=== PATIENT | male | born 1975 | race Caucasian/White ===

== ENCOUNTER 2016-09-02 14:08 | Inpatient (IN) ==
[2016-09-02 15:24] LABS: MANUAL DIFF NEEDED? NO
[2016-09-02 15:28] LABS: BASO% 0.3 % (0.0-0.8); EOS# 0.08 X1000 (0.0-0.7); EOS% 1.1 % (0.0-10.0); HEMATOCRIT 42.9 % (42.0-52.0); HEMOGLOBIN 13.7 g/dL (14.0-18.0); LYMPH# 1.82 X1000 (1.2-3.4); LYMPH% 25.1 % (20.5-51.1); MCH 27.2 PG (27-31); MCHC 31.9 g/dL (33-37); MCV 85.1 FL (81-99); MONO# 0.54 X1000 (0.11-0.59); MONO% 7.4 % (1.7-9.3); NEUT% 66.1 % (42.2-75.2); PLT 225 X1000 (130-400); RBC 5.04 XMIL (4.7-6.1)
--- NOTE | 2016-09-02 16:03 | EKG Report ---
Test Performed on : 09/02/2016 2:24:49 PM Test Reason : syncopy Blood Pressure : / mmHG Vent. Rate : 066 BPM Atrial Rate : 066 BPM P-R Int : 178 ms QRS Dur : 076 ms QT Int : 400 ms P-R-T Axes : 035 022 004 degrees QTc Int : 419 ms Normal sinus rhythm. Cannot rule out Anterior infarct , age undetermined Abnormal ECG When compared with ECG of 06-MAY-2016 11:33, No significant change was found Unconfirmed Result
[2016-09-02 16:17] LABS: AGAP 13; ALBUMIN 4.1 g/dL (3.5-5.0); ALKALINE PHOSPHATASE 65 U/L (32-122); BUN 13 mg/dL (8-22); CALCIUM 9.8 mg/dL (8.8-10.2); CHLORIDE 99 mmol/L (98-107); CK PROFILE 2408 U/L (24-204); COSMO 278; GOT 59 U/L (10-34); GPT 38 U/L (10-44); POTASSIUM 4.2 mmol/L (3.5-5.1); SODIUM 139 mmol/L (136-145); TCO2 27 mmol/L (25-35); TOTAL BILIRUBIN 0.74 mg/dL (0.20-1.00)
[2016-09-02] MEDS ORDERED: NS 1,000 ML IV ONE (16:31)
[2016-09-02 16:50] LABS: CK INDEX 1.5 (0.0-2.5); CK-MB 36.97 ng/mL (0.0-5.0)
--- NOTE | 2016-09-02 17:08 | Diag Imaging Result Doc PS360 ---
CHEST-2 VIEWS - 09/02/2016 INDICATION: syncope TECHNIQUE: COMPARISON: 05/06/2016 FINDINGS: The lungs are normally expanded and clear. Heart size and mediastinal contours are normal. No pneumothorax or pleural effusion. IMPRESSION: Negative exam. Electronically signed by Khari Atwood 09/02/2016 5:06 PM
[2016-09-02 19:01] LABS: HEMOGLOBIN A1C 6.4 % (4.8-6.0)
[2016-09-02 19:29] LABS: URINE CULTURE NEEDED? NO; URINE MICRO REVIEW NEEDED? NO; URINE SOURCE CLEAN CATCH
[2016-09-02 19:33] LABS: BILIRUBIN URINE NEGATIVE (NEGATIVE); BLOOD URINE NEGATIVE (NEGATIVE); COLOR YELLOW; GLUCOSE URINE NEGATIVE (NEGATIVE); LEUKOCYTES URINE NEGATIVE (NEGATIVE); NITRITE URINE NEGATIVE (NEGATIVE); PROTEIN URINE NEGATIVE (NEGATIVE); TURBIDITY URINE CLEAR (CLEAR); UR EPITHELIAL CELLS <10 /HPF (<10); URINE BACTERIA NEGATIVE /HPF; URINE RBC <10 /HPF (<10); URINE WBC <10 /HPF (<10); UROBILINOGEN URINE NORMAL (NORMAL)
[2016-09-02 19:52] LABS: UR AMPHETAMINES QUAL NONE DETECTED (NONE DETECT); UR BARBITUATES QUAL NONE DETECTED (NONE DETECT); UR BENZODIAZEPIN QUAL NONE DETECTED (NONE DETECT); UR CANNABINOIDS QUAL NONE DETECTED (NONE DETECT); UR COCAINE QUAL NONE DETECTED (NONE DETECT); UR METHADONE QUAL NONE DETECTED (NONE DETECT); UR OPIATES QUAL NONE DETECTED (NONE DETECT); UR OXYCODONE QUAL NONE DETECTED (NONE DETECT); UR PCP QUAL NONE DETECTED (NONE DETECT)
[2016-09-02] MEDS ORDERED: ZOFRAN IV PRN (20:46)
[2016-09-02] MEDS ORDERED: NS 1,000 ML IV PRN (20:46)
[2016-09-02] MEDS ORDERED: TYLENOL PO PRN (20:46)
[2016-09-02] MEDS: HEPARIN SUBQ SCH (21:15)
--- NOTE | 2016-09-02 22:34 | HISTORY AND PHYSICAL ---
PRIMARY CARE PROVIDER: No one. CHIEF COMPLAINT: Passed out. HISTORY OF PRESENT ILLNESS: Mr. Salvatore Hidalgo is a 40-year-old male, who apparently during a 15 minute break at work had passed out. He states he works at [employer] in a very hot environment where the air conditioner is not working. He states he drinks several bottles of water and Gatorade while at work. He also presented once last week for overheating and dizziness during work. Reviewing his cardiac enzymes, troponins are negative, but the CKs have been chronically elevated since August 2014 likely secondary to chronically working in the heat. MB has also been chronically elevated anywhere from [address] up to 36 today. Troponins have been negative, less than 0.01. Today is 0.015. He denies chest pain, shortness of breath. He does state that at night when he sleeps he feels like he ayden, but does have a weight is a of 350 pounds with a BMI of 42.6. The and the patient also state that he has frequently fallen asleep, even while driving, which is possibly narcolepsy. He has had a recent cardiac workup with a cardiac stress test and echocardiogram on 05/2016 which neither one had significant findings. He again denies any pain, shortness of breath, fever, chills, nausea, vomiting or diarrhea. We will admit overnight. We will do orthostatic vital signs every 12 hours. We will continue with serial cardiac enzymes. We will do aggressive IV fluid hydration. We will also order a carotid ultrasound to complete the workup. PAST MEDICAL HISTORY: None. SURGICAL HISTORY: None. SOCIAL HISTORY: Denies alcohol, tobacco or illicit drug use. He works at [employer] in a very hot environment. The patient also states that there have been other employees that had to go home secondary to heat exhaustion. FAMILY HISTORY: Sickle cell is positive in his family and he had a mother who has had a stroke. REVIEW OF SYSTEMS: A 14 point review of systems were completed and all were negative except for those mentioned in above HPI. ALLERGIES: Ibuprofen. HOME MEDICATIONS: None. PHYSICAL EXAMINATION: VITAL SIGNS: Temperature 98.2 degrees, heart rate anywhere from 51-66, respiratory rate 16, blood pressure 122/85, O2 saturation 92% on room air. He is 6 feet 4 inches tall, 350 pounds, BMI 42.6. GENERAL: Mr. Hidalgo is a 40-year-old morbidly obese male, who is in no acute distress, able to answer all questions appropriately. HEENT: Atraumatic, normocephalic. Pupils equal, round, reactive to light. Extraocular movements intact. Mucous membranes dry. NECK: Unable to assess for JVD secondary to body habitus, but negative for carotid bruits. CARDIOVASCULAR: S1, S2. Regular rate and rhythm. No rubs, gallops, murmurs. PULMONARY: Clear to auscultation. Bilateral breath sounds. No accessory muscle use or work of breathing noted. GI: Soft, nontender, morbidly obese, positive bowel sounds x4. EXTREMITIES: +2 dorsalis and radial pulses. No edema noted. NEUROLOGIC: Alert and oriented x4. Moves all extremities equally. There is some right eye protrusion which is chronic in nature. Pupils are equal and reactive. SKIN: Warm, dry, intact. LABORATORY DATA: White blood cells 7000, hemoglobin 13, hematocrit 42, platelet count 225,000. Sodium 139, potassium 4.2, BUN 13, creatinine is 1.1. Glucose 97, bilirubin 0.74, AST 59, ALT 38, CK 2408, CK-MB is 36.97. Troponin is 0.015. Urinalysis is pending. IMAGING: Chest x-ray: No acute findings. EKG: Normal sinus rhythm, rate is 66. No ST changes. QTc is 419. ASSESSMENT/PLAN: 1. Syncope. He has had a cardiac work up. Echocardiogram in May of this year showed a normal ejection fraction of 65%. There was trace pulmonary regurgitation, mild mitral regurgitation, mild tricuspid regurgitation, and that is all that it reported and then he also had a cardiac stress test 06/04/2016 which revealed no chest pain. Negative exercise stress echocardiogram at low workload/ there were no dysrhythmias and his blood pressure remained normal. There were no signs of ischemia. We will do every 12 hour orthostatic vital signs and follow up with a carotid ultrasound. 2. Dehydration with possible low-grade rhabdomyolysis. He does have a chronically elevated CK and CK-MB. We will do aggressive intravenous fluid hydration overnight and recheck serial cardiac enzymes to further evaluate the creatinine kinase levels. 3. Morbid obesity. Body mass index is 42.6. This could cause his complaints of smothering at night when he is sleeping. Exercise was discussed. Diet regimen also. 4. Symptoms of narcolepsy per the family. We are aware. No medications for narcolepsy at this time. 5. Deep venous thrombosis prophylaxis. Heparin. 6. Gastrointestinal prophylaxis. Proton pump inhibitor. Dictated by MELE Ceballos for Kang Ballesteros MD cc: MELE Ceballos MD
[2016-09-03 06:45] LABS: MANUAL DIFF NEEDED? NO
[2016-09-03] MEDS ORDERED: TYLENOL PO PRN (06:46)
[2016-09-03 06:57] LABS: BASO% 0.2 % (0.0-0.8); EOS# 0.13 X1000 (0.0-0.7); EOS% 1.5 % (0.0-10.0); HEMATOCRIT 42.4 % (42.0-52.0); HEMOGLOBIN 13.6 g/dL (14.0-18.0); IMM GRAN# 0.02 X1000 (0.0-0.04); IMM GRAN% 0.2 % (0.0-0.5); LYMPH# 1.51 X1000 (1.2-3.4); LYMPH% 17.3 % (20.5-51.1); MCH 27.5 PG (27-31); MCHC 32.1 g/dL (33-37); MCV 85.7 FL (81-99); MPV 11.3 FL (7.4-10.4); NEUT% 72.8 % (42.2-75.2); PLT 210 X1000 (130-400); RBC 4.95 XMIL (4.7-6.1)
[2016-09-03 07:02] LABS: INR 0.93 (0.86-1.15); PROTIME 12.8 Seconds (12.1-15.5)
[2016-09-03 07:03] LABS: PTT PL 31.4 Seconds (22.6-43.9)
[2016-09-03 07:11] LABS: AGAP 10; ALBUMIN 3.7 g/dL (3.5-5.0); ALKALINE PHOSPHATASE 71 U/L (32-122); BUN 16 mg/dL (8-22); CALCIUM 8.7 mg/dL (8.8-10.2); CHLORIDE 102 mmol/L (98-107); COSMO 277; GOT 40 U/L (10-34); GPT 33 U/L (10-44); MAGNESIUM 1.9 mg/dL (1.5-2.7); POTASSIUM 4.1 mmol/L (3.5-5.1); SODIUM 138 mmol/L (136-145); TCO2 27 mmol/L (25-35); TOTAL PROTEIN 6.1 g/dL (6.3-8.3)
--- NOTE | 2016-09-03 08:13 | PROGRESS NOTE ---
DATE: 09/03/2016 SUBJECTIVE: The patient denies any current chest pain, palpitations. Denies any complaints. He states he has been up to the restroom without any difficulty. PHYSICAL: Temperature 98, pulse 61, respiratory rate 18, BP 136/95, saturation 100% on room air. General: The patient is awake, alert, oriented. He is currently in no respiratory distress. He is pleasant to talk with. Overweight male. Neck: Supple. CV: Regular rate. Chest clear and unlabored. Abdomen soft, obese. Extremities: He moves all extremities. Neurologic: No focal changes. Skin warm and dry. No rashes. LABORATORY DATA: CBC normal. CMP normal with the exception of a calcium of 8.7 and a CPK at 1114. ASSESSMENT: 1. Rhabdomyolysis. CPK was 2408 upon initial presentation and currently is 1114. 2. Volume depletion. The patient likely is staying dehydrated at home, as well as at work, as he notes that his urine is usually quite dark in color. 3. Syncope. I expect this his vasovagal syncope secondary to volume depletion. 4. Hypertension. The patient's blood pressure, although not terribly high, is staying in the 135/90 range on average. I discussed with the patient that this is high blood pressure and that it certainly will need to be treated in the future but, currently given his syncope, we will continue to watch. PLAN: We will continue to watch the patient. We will continue to give the patient IV fluids. We will recheck a CPK in the a.m. Keep him on telemetry today and allow him to ambulate the halls. We will watch his blood pressures. We will continue to follow. cc: Obie De Leon MD
[2016-09-03] MEDS ORDERED: PRILOSEC PO SCH (09:00)
[2016-09-03] MEDS: HEPARIN SUBQ SCH ×2 (09:28→21:25)
[2016-09-03] MEDS: PRILOSEC PO SCH (09:28)
--- NOTE | 2016-09-03 10:50 | EKG Report ---
Test Performed on : 09/03/2016 05:46:19 AM Test Reason : syncope Blood Pressure : / mmHG Vent. Rate : 058 BPM Atrial Rate : 058 BPM P-R Int : 178 ms QRS Dur : 084 ms QT Int : 420 ms P-R-T Axes : 037 024 020 degrees QTc Int : 412 ms Sinus bradycardia. with sinus arrhythmia. Cannot rule out Anterior infarct (cited on or before 02-SEP-2016) Abnormal ECG When compared with ECG of 02-SEP-2016 14:24, (Unconfirmed) No significant change was found Unconfirmed Result
--- NOTE | 2016-09-03 15:24 | Extremity Venous Study ---
EXAM: Carotid Ultrasound - 09/03/2016 HISTORY: syncope TECHNIQUE: Carotid flow studies COMPARISON: None. FINDINGS: There is no substantial atherosclerotic plaque. The right carotid system. Maximum systolic velocity right internal carotid artery is 63 cm/s, maximum diastolic velocity is 19 cm/s. The right internal to common carotid artery systolic velocity ratio is 0.69. The flow velocities and ratio are consistent with 0-39% stenosis of the right internal carotid artery. The right vertebral artery demonstrates antegrade flow. There is no substantial atherosclerotic plaquing identified in the left carotid system. Maximum systolic velocity in the left internal carotid artery is 79 cm/s, maximum diastolic velocity is 34 cm/s. The left internal carotid to common carotid artery systolic velocity ratio is 0.84. The flow velocities and ratio are consistent with 0-39% stenosis of the left internal carotid artery. The left vertebral artery demonstrates antegrade flow. IMPRESSION: Unremarkable bilateral carotid systems. Electronically signed by Ronaldo Moore 09/03/2016 3:21 PM
[2016-09-04 06:06] LABS: HEMOGLOBIN 13.2 g/dL (14.0-18.0); MCH 26.9 PG (27-31); MCHC 31.4 g/dL (33-37); MCV 85.5 FL (81-99); MPV 11.4 FL (7.4-10.4); RBC 4.91 XMIL (4.7-6.1)
[2016-09-04] MEDS: PRILOSEC PO SCH (06:07)
[2016-09-04 06:20] LABS: AGAP 9; ALBUMIN 3.7 g/dL (3.5-5.0); ALKALINE PHOSPHATASE 76 U/L (32-122); BUN 13 mg/dL (8-22); CALCIUM 8.2 mg/dL (8.8-10.2); CHLORIDE 103 mmol/L (98-107); COSMO 278; GOT 31 U/L (10-34); GPT 32 U/L (10-44); POTASSIUM 4.2 mmol/L (3.5-5.1); SODIUM 139 mmol/L (136-145); TCO2 27 mmol/L (25-35); TOTAL PROTEIN 6.4 g/dL (6.3-8.3)
[2016-09-04 07:18] LABS: CK INDEX 1.7 (0.0-2.5); CK-MB 10.03 ng/mL (0.0-5.0)
[2016-09-04 07:23] VITALS: BP 129/82
[2016-09-04] MEDS: HEPARIN SUBQ SCH (08:57)
--- NOTE | 2016-09-04 11:12 | DISCHARGE SUMMARY ---
ADMISSION DATE: 09/02/2016 DISCHARGE DATE: 09/04/2016 DISCHARGE DIAGNOSES: 1. Rhabdomyolysis. CPK 1500 on admit, 600 on discharge. 2. Syncope, likely vasovagal, secondary to volume depletion. 3. Volume depletion. 4. Morbid obesity. CONSULTATIONS: None. PROCEDURE: None. BRIEF HOSPITAL COURSE: The patient is a 41-year-old overweight male who certainly has diabetes with an A1c of 6.4, currently diet-controlled. He is not on medications at home. He presented to the emergency department after having a syncopal episode at work. It was felt that it was likely secondary to volume depletion. Patient notes that his urine is always dark, all the time. States that he does not drink enough. Also on admission, he was noted to have CPK at 1500. The patient was started on IV fluids. He did not have any orthostatics on exam. He continued to improve. After CPK decreased, his lightheadedness was gone. On discharge, patient was awake and alert. He was in no distress. He was able to ambulate in the hallway. He was having no further syncopal episodes. DISPOSITION: Discussed with the patient that he needs to follow up with his primary care regarding his blood sugar, he needs to eat a diabetic diet, he needs to start exercising, and also discussed with him that he needs to continue to push fluids to make sure that his urine is clear. If it is not, he is certainly dehydrated and he works in a hot environment, which could have contributed to if not completely caused his syncopal episode. TIME SPENT: Thirty-five minutes was spent in discharge planning and instructions. cc: Obie De Leon MD
--- NOTE | 2016-09-26 16:37 | PROVIDER DOCUMENTATION ---
This chart was entered by Dontrell Villa Scribe, acting as scribe for Anish Doan MD. HPI-Syncope/Dizziness - General Chief Complaint: Syncope Stated Complaint: PASSED OUT AT WORK Time Seen by Provider: 09/02/16 14:50 Source: patient Allergies/Adverse Reactions: Patient Allergies Allergy/AdvReac Type Severity Reaction Status Date / Time ibuprofen Allergy ANAPHYLAXIS Verified 09/02/16 15:32 Home Medications: Home Medication List Medication Instructions Recorded Confirmed Last Taken Type No Home Medications 05/06/16 09/02/16 Unknown History - History of Present Illness-Syncope/Dizzy Nature of Presenting Problem: Patient is a 40 y/o M that presents to the ER after having a syncopal episode. 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 He took a break and sitting at table drinking water. patient went to stand up and apparently he went out. patient report friend said he was out for 15 minutes. Plant nurse checked on patient as well and drove him here. Patient feels normal now. he denies having dizziness, chest pain, or n/v. Patient has similar episode 5 years ago. 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 patient never lost pulse or stop breathing, just was out. Prior Episodes: reports: single episode today Onset/Duration: reports: abrupt, just prior to arrival Timing: reports: gone now Position/Activity at time of episode: reports: sitting, standing Symptoms prior to episode: reports: none Duration of preceding symptoms? (mins): 15 Context: reports: lost consciousness, collapsed Loss of Consciousness: prolonged (minutes) Location of injury. (If syncope resulted in an injury.): reports: none Current Symptoms: reports: none/feels normal Similar symptoms previously: reports: workup for same problem Recently Seen Here or By Another Healthcare Provider: No Review of Systems - Adult - REVIEW OF SYSTEMS - ADULT Constitutional: denies: chills, fever, fatique Eyes: denies: decreased vision, blurred vision, double vision Ears, Nose, Mouth & Throat: denies: ear discharge, ear pain, epistaxis, sinus problem, mouth/dental pain, mouth swelling, throat pain, throat swelling Cardiovascular: reports: syncope. denies: chest pain, orthopnea, palpitations Respiratory: denies: dyspnea on exertion, hemoptysis, shortness of breath, wheezing Gastrointestinal: denies: abdominal pain, nausea, vomiting Genitourinary: reports: no symptoms reported Musculoskeletal: denies: back pain, joint pain, neck pain Integumentary: reports: no symptoms reported Neurological: reports: syncope. denies: dizziness/vertigo, headache/migraines, loss of balance, seizure, tremors Psychiatric: reports: no symptoms reported Endocrine: reports: no symptoms reported Hematologic/Lymphatic: reports: no symptoms reported Allergic/Immunologic: reports: no symptoms reported All Other Systems: Reviewed and Negative Past History - Adult - PAST MEDICAL HISTORY-ADULT Review of Records: reports: Old Records Reviewed, Nursing Assessment Review, Medications Reviewed Endocrine/Immune: reports: other (eye problem) - PRIOR SURGERIES/PROCEDURES Surgical/Procedure History: reports: none - IMMUNIZATION STATUS Childhood Immunizations: See Nurse Assessment Flu Vaccine: See Nurse Assessment - FAMILY HISTORY Family History: reviewed, not pertinent - SOCIAL HISTORY Smoking: non-smoker Living Situation: family Physical Exam-General - PHYSICAL EXAM-ADULT Initial Vital Signs Reviewed: Yes - CONSTITUTIONAL General Appearance: alert, no apparent distress - EYES Eyes: PERRL/EOMI, pink conjunctivae - HEAD, EARS, NOSE, MOUTH & THROAT HENMT: normocephalic/atraumatic, moist mucous membranes, normal ENT inspection - NECK Neck: full range of motion, normal inspection - RESPIRATORY Respiratory: lungs clear, normal breath sounds, no respiratory distress, no accessory muscle use - CARDIOVASCULAR Cardiovascular: normal peripheral pulses, regular rate, rhythm, no edema, no murmur - GASTROINTESTINAL (ABDOMEN) Abdominal Exam: normal bowel sounds, non tender, soft, no organomegaly, no pulsatile mass - MUSCULOSKELETAL Back Exam: no CVA tenderness, no vertebral tenderness Extremity: normal range of motion, normal inspection, no pedal edema - SKIN Integumentary: normal color, warm/dry - NEUROLOGIC Neurologic: grossly normal, no motor/sensory deficits - PSYCHIATRIC Psych/Mental Status: normal mood/affect, normal thought content, normal thought process, oriented x 3 Progress - PLAN OF CARE/RESULTS Progress/Plan/Lab Results: Orders Category Date Time Status Admit - [facility] Routine AdmDCTranf 09/02/16 20:46 Ordered Activity - Up with Assistance ORDERED Care 09/02/16 20:46 Active Intake and Output-Strict ORDERED Care 09/02/16 20:46 Active Orthostatic [Orthostatic Vital Signs] Q12-HR ASSESS Care 09/02/16 20:46 Active Vital Signs Order Q 4-HR ASSESS Care 09/02/16 20:46 Active Regular Diet Diet 09/02/16 18:04 Completed Regular Diet Diet 09/02/16 18:33 Completed CHEST-2 VIEWS [RAD] Stat Exams 09/02/16 16:45 Completed A1C HGB W EST AVG GLUCOSE [CHEM] Stat Lab 09/02/16 14:31 Completed CBC WITH DIFF [HEME] Routine Lab 09/03/16 06:40 Completed CBC WITH ELECTRONIC DIFF [HEME] Stat Lab 09/02/16 14:31 Completed CK TOTAL [CHEM] Q8H Lab 09/02/16 23:35 Completed CK TOTAL [CHEM] Q8H Lab 09/03/16 06:40 Completed CMP [COMPREHENSIVE METABOLIC PANEL] [CHEM] Stat Lab 09/02/16 14:31 Completed COMPREHENSIVE METABOLIC PANEL [CHEM] Routine Lab 09/03/16 06:40 Completed Cardiac Profile [CK PROFILE] [SP CHEM] Stat Lab 09/02/16 14:31 Completed LIPID PROFILE W/DIR LDL [LIPIDS] Stat Lab 09/02/16 14:31 Completed MAGNESIUM [CHEM] Routine Lab 09/03/16 06:40 Completed [address]IME WITH INR PL [COAG] Routine Lab 09/03/16 06:[address] [COAG] Routine Lab 09/03/16 06:40 Completed TROPONIN T Q8H Lab 09/02/16 21:10 Completed TROPONIN T Q8H Lab 09/03/16 06:40 Completed TROPONIN T Stat Lab 09/02/16 14:31 Completed TSH Routine Lab 09/03/16 06:40 Completed URINALYSIS W/POSS RFLX CULT-1 [URINALYSIS] Stat Lab 09/02/16 19:15 Completed URINE DRUG SCREEN Stat Lab 09/02/16 19:15 Completed 0.9% Sodium Chloride Inj [Ns] 1,000 ml Med 09/02/16 20:46 Discontinued IV 150 mls/hr 0.9% Sodium Chloride Inj [Ns] 1,000 ml Med 09/02/16 16:31 Discontinued IV 999 mls/hr Acetaminophen [Tylenol] Med 09/02/16 20:46 Discontinued 650 mg PO PRN PRN Heparin Med 09/02/16 21:00 Discontinued 5,000 unit SUBQ Q12HR Omeprazole [Prilosec] Med 09/03/16 09:00 Discontinued 40 mg PO DAILY Ondansetron [Zofran] Med 09/02/16 20:46 Discontinued 4 mg IV Q4H PRN PRN Telemetry [OM.EQ] Routine Oth 09/02/16 20:46 Active Carotid Ultrasound Routine Ther 09/03/16 07:00 Completed EKG [EKG] Routine Ther 09/03/16 08:00 Draft EKG [EKG] Stat Ther 09/02/16 15:17 Draft Transfer/Admit Order [TRANSFER] Routine Transfer 09/02/16 18:02 Completed pt will be admitted for observation Result Diagrams: 09/04/16 05:50 09/04/16 05:50 - EKG 1 Time of EKG reading by physician:: 14:34 EKG Read and Signed by:: Anish Doan EKG Interpretation (*Must complete 3 of following elements*): Abnormal Rate: 66 Rhythm: NSR QRS: poor R wave progression [place] Interval: normal ST Wave: normal - CONSULTS/PCP/HOSPITALIST Notification #1 *Consult/PCP/Hospitalist*: ( 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) Time Discussed: 16:49 Reason/Comments: syncope, elevated CK -do an UDS on patient and give fluids Consult Disposition: other (consult) Departure - Departure Date of Disposition Decision: 09/02/16 Time of Disposition Decision: 17:17 DIAGNOSIS: Syncope, Elevated CK Disposition: ADMITTED INPATIENT 09 Certified Medical Emergency: Emergent Condition: Stable - Critical Care Note This patient required my direct & personal management of CC.: No This chart was documented by the indicated scribe, (Dontrell Villa, Lauraibe) and accurately reflects the services I performed and decisions made by me, Anish Doan MD, as attested by the provider's signature.
== END 2016-09-04 09:50 | disposition home or self-care (01) ==
LOC: ED 14:08 → SUATTDRO 19:47 → P.MEDSURG 19:47
PROVIDERS: ATTEND Family Medicine

== ENCOUNTER 2018-10-29 07:28 | Observation (INO) ==
[2018-10-29 08:29] LABS: BASO# 0.02 X1000 (0.0-0.2); BASO% 0.3 % (0.0-0.8); EOS# 0.13 X1000 (0.0-0.7); EOS% 1.7 % (0.0-10.0); HEMATOCRIT 42.7 % (42.0-52.0); IMM GRAN# 0.01 X1000 (0.0-0.04); IMM GRAN% 0.1 % (0.0-0.5); LYMPH# 1.56 X1000 (1.2-3.4); LYMPH% 20.3 % (20.5-51.1); MCH 28.2 PG (27-31); MCHC 32.8 g/dL (33-37); MCV 86.1 FL (81-99); MONO# 0.71 X1000 (0.11-0.59); MONO% 9.2 % (1.7-9.3); MPV 11.1 FL (7.4-10.4); NEUT# 5.25 X1000 (1.4-6.5); NEUT% 68.4 % (42.2-75.2); PLT 221 X1000 (130-400); RBC 4.96 XMIL (4.7-6.1); RDW 14.8 % (11.5-14.5); WBC 7.68 X1000 (4.8-10.8)
[2018-10-29 08:43] LABS: AGAP 11; ALBUMIN 4.6 g/dL (3.5-5.0); ALKALINE PHOSPHATASE 75 U/L (32-122); BUN 13 mg/dL (8-22); CALCIUM 8.8 mg/dL (8.8-10.2); CHLORIDE 100 mmol/L (98-107); COSMO 279; CREATININE 1.2 mg/dL (0.7-1.2); ESTIMATED GFR > 60; GLUCOSE 123 mg/dL (70-104); GOT 61 U/L (10-34); GPT 41 U/L (10-44); POTASSIUM 4.1 mmol/L (3.5-5.1); SODIUM 139 mmol/L (136-145); TCO2 29 mmol/L (25-35); TOTAL PROTEIN 7.1 g/dL (6.3-8.3)
--- NOTE | 2018-10-29 08:46 | Diag Imaging Result Doc PS360 ---
EXAM: CHEST-2 VIEWS - 10/29/2018 HISTORY: epigastric pain TECHNIQUE: Chest two views COMPARISON: 09/02/2016 FINDINGS: Inspiration is mildly shallow. Heart size appears upper normal. Lungs appear clear. There is no pleural effusion or pneumothorax identified. There is some thoracic dextroscoliosis noted. IMPRESSION: Mildly shallow inspiration. No other evidence of acute disease. Electronically signed by Ronaldo Moore 10/29/2018 8:44 AM
--- NOTE | 2018-10-29 08:57 | EKG Report ---
Test Performed on : 10/29/2018 08:04:23 AM Test Reason : epigastric pain and dizziness Blood Pressure : / mmHG Vent. Rate : 059 BPM Atrial Rate : 059 BPM P-R Int : 186 ms QRS Dur : 092 ms QT Int : 442 ms P-R-T Axes : 040 019 007 degrees QTc Int : 437 ms Sinus bradycardia. Possible Inferior infarct , age undetermined Cannot rule out Anterior infarct (cited on or before 21-OCT-2018) Abnormal ECG When compared with ECG of 21-OCT-2018 01:37, (Unconfirmed) No significant change was found Unconfirmed Result
[2018-10-29] MEDS ORDERED: LEXISCAN ONE (09:00)
[2018-10-29 09:20] LABS: CK INDEX 0.8 (0.0-2.5); CK-MB 23.96 ng/mL (0.0-5.0)
--- NOTE | 2018-10-29 09:57 | PROVIDER DOCUMENTATION ---
This chart was entered by Vanita Philippe Scribe, acting as scribe for Wil Avila MD. HPI-Chest Pain - General Chief Complaint: General Adult Stated Complaint: LIGHT HEADED Time Seen by Provider: 10/29/18 09:15 Source: patient Allergies/Adverse Reactions: Patient Allergies Allergy/AdvReac Type Severity Reaction Status Date / Time ibuprofen Allergy Severe ANAPHYLAXIS Verified 10/29/18 08:16 Home Medications: Home Medication List Medication Instructions Recorded Confirmed Last Taken Type NK [No Home Medications] 10/29/18 10/29/18 Unknown History - History of Present Illness-CP Nature of Presenting Problem: Patient is a 43 year old male who presents with chest pain and dizziness. States symptoms started this morning. Denies cardiac history. Location: reports: central Chest Pain Radiation: reports: no radiation Quality of Pain: reports: aching Severity in ED: mild Onset/Duration: this morning Timing: still present Context/Activities at Onset: reports: light activity Modifying Factors: improves with: nothing Associated Symptoms: reports: dizziness Similar Symptoms Previously?: No Recently Seen Here or By Another Healthcare Provider: No Review of Systems - Adult - REVIEW OF SYSTEMS - ADULT Constitutional: reports: no symptoms reported. denies: chills, fever, fatique Eyes: reports: no symptoms reported Ears, Nose, Mouth & Throat: reports: no symptoms reported Cardiovascular: reports: see HPI, chest pain. denies: irregular heart rate, palpitations Respiratory: reports: no symptoms reported Gastrointestinal: reports: no symptoms reported Genitourinary: reports: no symptoms reported Musculoskeletal: reports: no symptoms reported Integumentary: reports: no symptoms reported Neurological: reports: see HPI, dizziness/vertigo (dizziness). denies: headache/migraines, numbness, seizure Psychiatric: reports: no symptoms reported Endocrine: reports: no symptoms reported Hematologic/Lymphatic: reports: no symptoms reported Allergic/Immunologic: reports: no symptoms reported All Other Systems: Reviewed and Negative Past History - Adult - PAST MEDICAL HISTORY-ADULT Review of Records: reports: Old Records Reviewed, Nursing Assessment Review, Medications Reviewed, Social history reviewed & non-contributory. Major Childhood Illnesses: reports: denies history Cardiovascular: reports: denies history Respiratory: reports: denies history Gastrointestinal: reports: denies history Obstetrical/Gynecological: reports: denies history Genitourinary: reports: denies history Musculoskeletal: reports: denies history Neurological: reports: denies history Psychiatric: reports: denies history Endocrine/Immune: reports: Diabetes, other (eye problem) Other Conditions: reports: denies history - PRIOR SURGERIES/PROCEDURES Surgical/Procedure History: reports: none - IMMUNIZATION STATUS Childhood Immunizations: See Nurse Assessment Flu Vaccine: See Nurse Assessment - FAMILY HISTORY Family History: reviewed, not pertinent - SOCIAL HISTORY Smoking: denies Substance Use: denies Physical Exam-General - PHYSICAL EXAM-ADULT Initial Vital Signs Reviewed: Yes - CONSTITUTIONAL General Appearance: alert, no apparent distress, obese. negative: lethargic - EYES Eyes: pink conjunctivae, other (proptosis of left eye.). negative: subconjunctival hemorrhage - HEAD, EARS, NOSE, MOUTH & THROAT HENMT: normocephalic/atraumatic, moist mucous membranes. negative: dental decay - RESPIRATORY Respiratory: chest non-tender, lungs clear, normal breath sounds. negative: crackles - CARDIOVASCULAR Cardiovascular: normal peripheral pulses, regular rate, rhythm. negative: tachycardia, systolic murmur - GASTROINTESTINAL (ABDOMEN) Abdominal Exam: normal bowel sounds, non tender, soft. negative: guarding - MUSCULOSKELETAL Extremity: non-tender, normal inspection. negative: deformity - SKIN Integumentary: normal color, normal turgor, warm/dry. negative: cyanosis, ecchymosis, jaundice, rash - NEUROLOGIC Neurologic: grossly normal. negative: aphasia, facial droop - PSYCHIATRIC Psych/Mental Status: normal mood/affect, oriented x 3. negative: anxious - HEART Score HEART Score: History: Slightly Suspicious HEART Score: ECG: Non-Specific Repolarization Disturbance/LBBB/PM HEART Score: Age: < or = 45 Years HEART Score: Risk Factors for Atherosclerotic Disease: 1 or 2 Risk Factors HEART Score: Troponin: 1-3x Normal Limit (ck/mb elevated) Total HEART Score:: 3 Progress - PLAN OF CARE/RESULTS Progress/Plan/Lab Results: Vital Signs - 8 hr 10/29/18 07:36 Temperature 98.7 F Pulse Rate 60 Respiratory Rate 18 Blood Pressure 150/93 O2 Sat by Pulse Oximetry 97 Laboratory Results - last 24 hr 10/29/18 10/29/18 10/29/18 08:10 08:10 08:10 WBC 7.68 RBC 4.96 Hgb 14.0 Hct 42.7 MCV 86.1 MCH 28.2 MCHC 32.8 L RDW Std Deviation 14.8 H Plt Count 221 MPV 11.1 H Immature Gran % (Auto) 0.1 Neut % (Auto) 68.4 Lymph % (Auto) 20.3 L [place] % (Auto) 9.2 Eos % (Auto) 1.7 Baso % (Auto) 0.3 Immature Gran # (Auto) 0.01 Neut # (Auto) 5.25 Lymph # (Auto) 1.56 [place] # (Auto) 0.71 H Eos # (Auto) 0.13 Baso # (Auto) 0.02 Sodium Potassium Chloride Carbon Dioxide Anion Gap BUN Creatinine Estimated GFR/1.73 m2 BUN/Creatinine Ratio Glucose Calculated Osmolality Calcium Total Bilirubin AST ALT Alkaline Phosphatase Creatine Kinase 3133 H Creatine Kinase Index 0.8 CK-MB (CK-2) 23.96 H Troponin T < 0.010 Total Protein Albumin Globulin Albumin/Globulin Ratio 10/29/18 08:10 WBC RBC Hgb Hct MCV MCH MCHC RDW Std Deviation Plt Count MPV Immature Gran % (Auto) Neut % (Auto) Lymph % (Auto) Sol[place] % (Auto) Eos % (Auto) Baso % (Auto) Immature Gran # (Auto) Neut # (Auto) Lymph # (Auto) Sol[place] # (Auto) Eos # (Auto) Baso # (Auto) Sodium 139 Potassium 4.1 Chloride 100 Carbon Dioxide 29 Anion Gap 11 BUN 13 Creatinine 1.2 Estimated GFR/1.73 m2 > 60 BUN/Creatinine Ratio 11 Glucose 123 H Calculated Osmolality 279 Calcium 8.8 Total Bilirubin 1.10 H AST 61 H ALT 41 Alkaline Phosphatase 75 Creatine Kinase Creatine Kinase Index CK-MB (CK-2) Troponin T Total Protein 7.1 Albumin 4.6 Globulin 3.0 Albumin/Globulin Ratio 2.0 Orders Category Date Time Status CHEST-2 VIEWS [RAD] Stat Exams 10/29/18 07:55 Completed CBC WITH DIFF [HEME] Stat Lab 10/29/18 08:10 Completed CK PROFILE [SP CHEM] Stat Lab 10/29/18 08:10 Completed COMPREHENSIVE METABOLIC PANEL [CHEM] Stat Lab 10/29/18 08:10 Completed TROPONIN T Stat Lab 10/29/18 08:10 Completed EKG [EKG] Stat Ther 10/29/18 07:53 Draft Result Diagrams: 10/29/18 08:10 10/29/18 08:10 - EKG 1 Time of EKG reading by physician:: 08:04 EKG Read and Signed by:: Wil Avila EKG Interpretation (*Must complete 3 of following elements*): Abnormal (cannot rule out anterior infarct, age undetermined) Rate: 59 Rhythm: sinus bradycardia MS Interval: normal Comments: possible inferior infarct, age undetermined; - XRAY 1 XRAY Study: Chest Impression: See EMR Report ( EXAM: CHEST-2 VIEWS - 10/29/2018 HISTORY: epigastric pain TECHNIQUE: Chest two views COMPARISON: 09/02/2016 FINDINGS: Inspiration is mildly shallow. Heart size appears upper normal. Lungs appear clear. There is no pleural effusion or pneumothorax identified. There is some thoracic dextroscoliosis noted. IMPRESSION: Mildly shallow inspiration. No other evidence of acute disease. Electronically signed by Ronaldo Moore 10/29/2018 8:44 AM 10/29/18 0844 Interpreting Physician: Ronaldo Moore MD Dictated Date/Time: 10/29/18 0842 cc: Wil Avila MD; None,PCP) - CONSULTS/PCP/HOSPITALIST Notification #1 *Consult/PCP/Hospitalist*: Dr. Ojeda Time Discussed: 09:34 Reason/Comments: Dr. Avila consulted with Dr. Ojeda about patient. Consult Disposition: Will see in ED, Admit Departure - Departure Date of Disposition Decision: 10/29/18 Time of Disposition Decision: 09:47 DIAGNOSIS: Chest pain, Dizziness, Elevation of cardiac enzymes Disposition: ADMITTED INPATIENT 09 Certified Medical Emergency: Emergent Condition: Fair Referrals and Follow-Ups: None,PCP [Primary Care Provider] - - Critical Care Note This patient required my direct & personal management of CC.: No Attestation - Physician/ VIDAL Attestation Patient care was provided by Advanced Practice Provider:: No The physician spent face to face time with patient:: Yes Advanced Practice Provider documentation review:: Supervising physician onsite and consulted in the evaluation and care of this patient. The physician did have a face to face encounter with the patient. This chart was documented by the indicated scribe, (Vanita Philippe Scribe) and accurately reflects the services I performed and decisions made by me, Wil Avila MD, as attested by the provider's signature.
[2018-10-29 11:11] LABS: CK INDEX 0.8 (0.0-2.5); CK-MB 23.34 ng/mL (0.0-5.0)
[2018-10-29] MEDS ORDERED: MORPHINE IV PRN (11:11)
[2018-10-29] MEDS ORDERED: ZOFRAN IV PRN (11:11)
--- NOTE | 2018-10-29 11:28 | EKG Report ---
Test Performed on : 10/29/2018 10:16:07 AM Test Reason : ekg #2 Blood Pressure : / mmHG Vent. Rate : 046 BPM Atrial Rate : 046 BPM P-R Int : 178 ms QRS Dur : 072 ms QT Int : 458 ms P-R-T Axes : 040 023 013 degrees QTc Int : 400 ms Sinus bradycardia. with sinus arrhythmia. Possible Inferior infarct (cited on or before 21-OCT-2018) Cannot rule out Anterior infarct (cited on or before 21-OCT-2018) Abnormal ECG When compared with ECG of 29-OCT-2018 08:04, (Unconfirmed) No significant change was found Unconfirmed Result
[2018-10-29] MEDS ORDERED: NS 1,000 ML IV ONE (12:08)
--- NOTE | 2018-10-29 13:48 | CARDIOLOGY CONSULTATION ---
DATE: 10/29/2018 REASON FOR CONSULTATION: Cardiology was consulted for chest pain. HISTORY OF PRESENT ILLNESS: Mr. Jomar Hidalgo is a 43-year-old, - [place] gentleman who has been in good health. He had an episode of sharp chest pain at work and then he felt slightly lightheaded. Came to the emergency room. Chest pains he describes as mild. There was no radiation to the back or down the arms. He felt dizzy after that. He was brought to the emergency room and subsequently admitted. Prior to this, he has not had any exertional component of chest pain. There is no orthopnea. There is no paroxysmal nocturnal dyspnea. He has not had any syncopal episode. He is not on any medications. There is no history of hypertension, diabetes, or coronary artery disease. He had an electrocardiogram which revealed normal sinus rhythm, normal EKG. Chest x-ray revealed shallow inspiration. There was no obvious airspace disease. REVIEW OF SYSTEMS: A 14-point review of systems was done. GI System: There is no history of nausea, vomiting, or diarrhea. There is no history of hematemesis or melena. Central Nervous System: No focal weakness to suggest a CVA or TIA. System: There is no dysuria or hematuria. Respiratory System: There is no history of cough, expectoration, or hemoptysis. There is no history of fevers or chills. Endocrine System: Stable. PHYSICAL EXAMINATION: When he came to the emergency room, blood pressure was 150/93. Subsequently, his blood pressure today has been 137/94. Cardiovascular System: Normal jugular venous pressure. There was no thyromegaly. There was no carotid bruit. First and second heart sounds were heard. There is no S3, S4, or gallop. Respiratory System: Normal air entry. There are no crepitations or rhonchi. Abdomen: Soft, nontender. There was no guarding or rigidity. Bowel sounds were heard. Central Nervous System: Alert and was moving all 4 extremities. Examination of extremities revealed no pedal edema. HEENT: Atraumatic, normocephalic. Pupils were equal and reacting to light. LABORATORY EXAMINATION: Sodium 139, potassium 4.1, BUN 13, creatinine 1.2. AST 61, bilirubin 1.1. Creatine kinase 3133, MB of 23, with an index of 0.8, two troponins were negative. Subsequent MB also revealed 3042 with a CK-MB of 23.34. WBC 7.68, hemoglobin 14, hematocrit 42, platelet count of 221,000. ASSESSMENT AND PLAN: Mr. Jomar Hidalgo is a 43-year-old gentleman with a history of sharp chest pain and had dizziness as well. He has no previous cardiac history. He does not smoke. There is no history of alcohol abuse. He is allergic to aspirin and ibuprofen which causes angioedema. He came to the emergency room with an episode of dizziness as well. Electrocardiogram was normal. Two sets of troponin were negative. His MB was elevated with a normal CK index. This could be secondary to dehydration as well. He is going to get intravenous fluids. In addition, this could be secondary to rhabdomyolysis. RECOMMENDATIONS: 1. From a cardiac standpoint, atypical chest pain. He is going to be hydrated. Would get an echocardiogram to assess cardiac and valvular function. 2. We will set him up to undergo a Cardiolite stress test to assess for and rule out ischemia. Thank you for the consult. cc: MD Juan Castro MD [facility]
[2018-10-29 14:20] LABS: CK INDEX 0.8 (0.0-2.5); CK-MB 22.71 ng/mL (0.0-5.0)
[2018-10-29] MEDS: NS 1,000 ML IV SCH (14:57)
[2018-10-29] MEDS ORDERED: TYLENOL PO PRN (17:08)
[2018-10-29 17:30] LABS: AGAP 11; ALBUMIN 3.8 g/dL (3.5-5.0); ALKALINE PHOSPHATASE 70 U/L (32-122); BUN 11 mg/dL (8-22); CALCIUM 8.4 mg/dL (8.8-10.2); CHLORIDE 103 mmol/L (98-107); COSMO 279; ESTIMATED GFR > 60; GLUCOSE 132 mg/dL (70-104); GOT 48 U/L (10-34); GPT 37 U/L (10-44); POTASSIUM 3.8 mmol/L (3.5-5.1); SODIUM 139 mmol/L (136-145); TCO2 25 mmol/L (25-35); TOTAL PROTEIN 6.7 g/dL (6.3-8.3)
[2018-10-29 17:56] LABS: CK INDEX 0.8 (0.0-2.5); CK-MB 17.4 ng/mL (0.0-5.0)
--- NOTE | 2018-10-29 18:27 | HISTORY AND PHYSICAL ---
CHIEF COMPLAINT: Chest pain and dizziness. HISTORY OF PRESENT ILLNESS: This is a 43-year-old male with probable history of type 2 diabetes and metabolic syndrome who presents with atypical chest pain. Patient describes that at 4:30 this morning before work he had a sharp chest pain. It resolved spontaneously I believe. He went to work. This may be around 7 or 8 and had an episode where he stood up and he became very dizzy. He thought he was going to pass out, but he did not pass out. About 8 days ago, he was here for feeling weak and dizzy at that time and was felt to have some acute dehydration, possibly some early heat stroke. I think he was given fluids and improved. I think he was orthostatic at that time. He had heat exhaustion, but I do not know if we did any labs. We did, and his CPK was elevated then 2364. It is 2939 now. He works now in a different environment. 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 He sounds like he has been diagnosed with diabetes, been placed on metformin, but he does not take that any more. There was no aston syncope. Workup in the ER was negative. He was placed in chest pain observation. PAST MEDICAL HISTORY: Again likely type 2 diabetes. No hypertension. No dyslipidemia. No prior cardiac history. PAST SURGICAL HISTORY: Denies. FAMILY HISTORY: Mother had CVA at 60. SOCIAL HISTORY: No tobacco. No ethanol. He is currently working. ALLERGIES: To ibuprofen, aspirin. They cause swelling. MEDICATIONS: Denies although he has been placed on metformin previously. REVIEW OF SYSTEMS: No weight loss, no appetite change. Cardiovascular and pulmonary as described. GI: No nausea, vomiting, diarrhea. No hematochezia. No melena. : No dysuria. No prostatism. Neurological: No focal weakness or paresthesias. Otherwise negative times a 10- point review of systems. PHYSICAL EXAMINATION: VITAL SIGNS: Blood pressure 140/86, heart rate of 69, respiratory rate 18, temperature 97.9 degrees, 96% on room air. CARDIOVASCULAR: Regular rate and rhythm. PULMONARY: Bilateral breath sounds. Clear to auscultation. GASTROINTESTINAL: Soft, nontender, nondistended. Bowel sounds are positive. EYE EXAM: Pupils equal, round, reactive to light. Extraocular movements were intact. Sclerae are anicteric. He does have some exophthalmos on the right eye but alone. NEUROLOGICAL: Cranial nerves 2 through 12 were grossly intact. MUSCULOSKELETAL EXAM: 5/5 in all 4 extremities. SKIN: Was clean, dry, intact. LABORATORY DATA: White count 7, hemoglobin and hematocrit 14 and 42, CPKs 29 and 39. Sugar looked fine, 123, 124. Troponins were negative. His EKG showed normal sinus. There was possibly some inferior changes in III and AVF seen previously but otherwise nonspecific. ASSESSMENT: This is a 43-year-old male with history of most likely diabetes who presents with atypical chest pain. 1. Atypical chest pain. We will get serial enzymes, place on telemetry, get echocardiogram, get stress test. Cardiology has been consulted. Appreciate their input. Work on secondary risk factor modification. 2. Elevated CPK, early rhabdomyolysis. He may have had some rhabdomyolysis related to heat exhaustion previously. We will continue fluids and track CK levels. 3. Possible early diabetes. I am going to monitor sugars, get an A1c and follow. Not starting any treatment at this point. DISPOSITION: Pending his clinical status, Lexiscan results. This is a service admission. cc: Juan Ojeda MD
[2018-10-29] MEDS: HUMULIN R (PARKWAY) SUBQ SCH (21:30)
[2018-10-30] MEDS: NS 1,000 ML IV SCH ×4 (03:04→09:41)
[2018-10-30] MEDS: HUMULIN R (PARKWAY) SUBQ SCH ×3 (06:32→16:50)
[2018-10-30 06:40] LABS: BASO% 0.2 % (0.0-0.8); EOS# 0.21 X1000 (0.0-0.7); EOS% 2.6 % (0.0-10.0); HEMATOCRIT 43.3 % (42.0-52.0); HEMOGLOBIN 13.7 g/dL (14.0-18.0); IMM GRAN% 0.2 % (0.0-0.5); LYMPH# 1.45 X1000 (1.2-3.4); MCH 27.6 PG (27-31); MCHC 31.6 g/dL (33-37); MCV 87.1 FL (81-99); MONO# 0.73 X1000 (0.11-0.59); MONO% 9.1 % (1.7-9.3); MPV 11.9 FL (7.4-10.4); NEUT# 5.63 X1000 (1.4-6.5); NEUT% 69.9 % (42.2-75.2); PLT 213 X1000 (130-400); RBC 4.97 XMIL (4.7-6.1); WBC 8.06 X1000 (4.8-10.8)
--- NOTE | 2018-10-30 06:40 | EKG Report ---
Test Performed on : 10/30/2018 06:15:34 AM Test Reason : cp Blood Pressure : / mmHG Vent. Rate : 053 BPM Atrial Rate : 053 BPM P-R Int : 184 ms QRS Dur : 088 ms QT Int : 440 ms P-R-T Axes : 033 020 008 degrees QTc Int : 412 ms Sinus bradycardia. Otherwise normal ECG When compared with ECG of 29-OCT-2018 10:16, (Unconfirmed) No significant change was found Confirmed by Travis Quintero MD ([id number]) on 10/30/2018 7:32:37 AM
[2018-10-30 06:41] LABS: BASO# 0.02 X1000 (0.0-0.2); IMM GRAN# 0.02 X1000 (0.0-0.04)
[2018-10-30 07:29] LABS: HEMOGLOBIN A1C 6.6 % (4.8-6.0)
[2018-10-30 07:45] LABS: AGAP 9; BUN 11 mg/dL (8-22); CALCIUM 8.5 mg/dL (8.8-10.2); CHLORIDE 104 mmol/L (98-107); CK TOTAL 1482 U/L (24-204); COSMO 280; ESTIMATED GFR > 60; GLUCOSE 115 mg/dL (70-104); POTASSIUM 4.5 mmol/L (3.5-5.1); SODIUM 140 mmol/L (136-145); TCO2 28 mmol/L (25-35)
--- NOTE | 2018-10-30 12:56 | GRADED EXERCISE REPORT ---
DATE: 10/30/2018 REQUESTING PHYSICIAN: Dr. Truman Viramontes. INDICATION: Chest pain. PROCEDURE: Lexiscan EKG. DESCRIPTION OF PROCEDURE IN DETAIL: Baseline EKG did show some Q-waves inferiorly 3 and AVF, otherwise no changes. He underwent Lexiscan infusion of 0.4 mg without difficulty, developed no chest pain, and there were no significant ST changes noted. Baseline heart rate 48, baseline blood pressure 136/86, peak heart rate 66, peak blood pressure 136/86. The test was felt to be clinically and electrically negative. Myocardial perfusion reported separately. cc: Juan Ojeda MD
--- NOTE | 2018-10-30 14:04 | ECHO REPORT ---
ORDER DATE: 10/29/2018 INDICATION: Chest pain. FINDINGS: 1. Right atrium appears normal in size at 2.1 cm. 2. Trace tricuspid regurgitation. Insufficient data to estimate RV systolic pressure. 3. Probable normal RV systolic function. The right ventricle was difficult to visualize. Appears mildly enlarged. 4. Mild pulmonic insufficiency. 5. Normal left atrial size with a dimension of 3.1 cm. 6. No mitral valve prolapse. No significant mitral regurgitation or stenosis. 7. Normal LV size, end-diastolic dimension of 4.9. Normal wall thicknesses with a posterior and interventricular septal wall thickness 0.7 and 1.0 cm respectively. Normal LV systolic function. Estimated EF of 60% to 65% with normal wall motion. 8. Aortic valve opens well. No evidence of stenosis or insufficiency. 9. Aorta appears somewhat enlarged at the root with a dimension of 4.1 cm. 10. No pericardial effusion seen. cc: MD Juan Potts MD
--- NOTE | 2018-10-30 14:34 | PROGRESS NOTE ---
DATE: 10/30/2018 SUBJECTIVE: Patient has no major complaints. OBJECTIVE: Blood pressure is 147/97, heart rate 53, respiratory 16, temperature 97.6 degrees, 94% on room air.Cardiovascular: Regular rate and rhythm. Pulmonary: Bilateral breath sounds clear to auscultation. GI: Soft, nontender, nondistended. Bowel sounds are positive. LABORATORY DATA: White count 8, hemoglobin and hematocrit 13 and 43, platelets 213,000. A1c is 6.6, but sugars are okay. CPK is coming down, 20/74 and 14/82. PROBLEM LIST: 1. Atypical chest pain is resolved. He seems to be doing okay. Still waiting results of echo and Lexiscan. 2. Mild rhabdomyolysis. We will continue hydration and follow. DISPOSITION: 1. Anticipate possible discharge soon. 2. Early onset diabetes. His fasting blood sugar this morning was only 115 and there was also one that was 127. His A1c is elevated at 6.6, but technically I do not think we need exact criteria for that although I do not think metformin would be inappropriate for him. He has been on it in the past, more so I think we just need to make sure he follows up with a physician. This [id number] encounter note with Marleny Spence. cc: Juan Ojeda MD [facility]
--- NOTE | 2018-10-30 14:48 | Diag Imaging Result Document ---
PROCEDURE NAME: MYOCARDIAL PERF SCAN, STR/REST - 10/30/2018 LEXISCAN CARDIOLITE STRESS TEST: Lexiscan was infused per standard protocol. Stress test by Dr. Ojeda. Following Lexiscan infusion, Cardiolite was injected. 15.9 mCi of Cardiolite was injected for the rest phase. 45 mCi of Cardiolite was injected for the stress phase. Images revealed significant chest wall and diaphragmatic attenuation. There is low-grade reversible perfusion defect in the left ventricular apex with normal wall motion. This is likely to represent attenuation defect. Left ventricular ejection fraction by gated SPECT was 69%. CONCLUSIONS: 1. Low-grade reversible defect in the left ventricular apex with significant chest wall attenuation. This is likely to represent attenuation defect. Would recommend clinical correlation. 2. Left ventricular ejection fraction by gated SPECT was 69%. Wall motion was normal. INCOMPLETE REPORT -- DICTATION ENDS HERE. cc: MD Juan Castro MD
[2018-10-30 17:12] VITALS: BP 136/87
--- NOTE | 2018-11-01 08:37 | DISCHARGE SUMMARY ---
ADMISSION DATE: 10/29/2018 DISCHARGE DATE: 10/30/2018 PRIMARY CARE PROVIDER: The patient does not have a primary care provider. ADMISSION DIAGNOSES: 1. Atypical chest pain. 2. Elevated CPK. 3. 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 DISCHARGE DIAGNOSIS: Possible coronary artery disease. PROCEDURES AND FINDINGS: This was a 43-year-old male with probable history of type 2 diabetes and metabolic syndrome, who presented for atypical chest pain. Pt had lexiscan with this admission that showed a small possible defect . The patient serial enzymes that were negative. Dr. Viramontes was consulted and stated pt could be treated medically. Elevated CPK and early rhabdomyolysis was noted. He was continued on fluids, and treated for some heat-related exhaustion and possible early diabetes. blood sugars monitored, and A1c of 6.6. The patient will be managed and treated medically, and will follow up with Dr. Viramontes on as an outpatient. DISCHARGE MEDICATIONS: Plavix 75 mg p.o. daily, and 25 mg of metoprolol p.o. daily. The patient was not taking any other home medications. DISCHARGE DIET: Diabetic. ACTIVITY: As tolerated. DISPOSITION: Discharge to self-care at home. Will give care physician referral numbers for her to establish a PCP, and will follow up with the mathematics professor, Dr. Viramontes, on an outpatient basis. The patient was encouraged to adopt a diabetic diet, and reviewed angina pectoris and rhabdomyolysis discharge instructions. DISCHARGE INSTRUCTIONS: All discharge instructions were reviewed with the patient, and the patient verbalized understanding. TIME SPENT: A 35-minute dictation. Dictated by MELE Bose for Juan Ojeda MD cc: Juan Ojeda MD MTD
--- NOTE | 2018-11-01 08:41 | DISCHARGE SUMMARY ---
ADMISSION DATE: 10/29/2018 DISCHARGE DATE: 10/30/2018 ADDENDUM: DISCHARGE LABORATORY DATA AND DIAGNOSTICS: Patient's discharge WBCs were 8.06, hemoglobin and hematocrit were 13.7 and 43.3, platelets 213,000. Sodium of 140, potassium of 4.5, chloride of 104, BUN of 11, and creatinine of 1.0. The patient's discharge glucose was 130. Creatine kinase was initially 3133, 3042, 2939, 2074, and down to 1482. Troponins were all negative x4. TSH of 2.47. EKG shows sinus bradycardia, otherwise normal EKG with a rate of 53. Discharge myocardial perfusion scan, stress rest showed a low-grade reversible defect with the left ventricular apex and a left ventricular ejection fraction graded by gated SPECT was 69%. Wall motion was normal. Dictated by MELE Bose for Juan Ojeda MD cc: Juan Ojeda MD
== END 2018-10-30 17:54 | disposition home or self-care (01) ==
LOC: P.ED 07:28 → INTOOBSV 11:03 → P.MEDSURG 11:03
PROVIDERS: ADMIT Internal Medicine
CPT/HCPCS: 71020; 71046; 78452; 80048; 80053; 82550; 82553; 82948; 83036; 84443; 84484; 85025; 93005; 93010; 93017; 93306; A9500; J2785; J7030; XXXXX